=== PATIENT | male | born 1985 | race American Indian/Alaskan Native ===

== ENCOUNTER 2022-08-24 12:15 | Emergency (ER) | payer MEDICAID ==
[2022-08-24 14:23] LABS: ESTIMATED GFR 115 mL/min (>60)
== END 2022-08-24 19:23 ==
LOC: JP.ED 12:15
DX: R45.851 Suicidal ideations (principal); Z79.899 Other long term (current) drug therapy; Z20.822 Contact with and (suspected) exposure to COVID-19
CPT/HCPCS: 36415; 80053; 80305-QW; 80307; 84443; 85025; 99285; U0002